=== PATIENT | female | born 1980 | race Caucasian/White ===

== ENCOUNTER 2018-03-19 16:01 | Emergency (ER) | payer OTHER, SELFPAY ==
[2018-03-19 16:11] VITALS: BP 143/90; PULSE 83; RESP 18; TEMP 36.6; O2SAT 98; BMI 31.0
--- NOTE | 2018-03-19 16:33 | ED.BACK ---
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 She states that she was hoping to bathe a client when she felt a pull in her left shoulder afterwards, she was bent over to help put on stockings and felt pain in her left mid and low back area, then unable to get up and straighten up initially due to pain. She states that pain has persisted since then, low-grade when she is sitting and straight, worse with trying to twist or bend at all. She states that she is okay with walking if her trunk is straight. She denies any weakness or paresthesia in her extremities. She denies any bowel or bladder problems. She does have a history of some remote back strain but no recent problems. She denies any other injury or complaints on systems review. Related Data Home Medications Medication Instructions Recorded Confirmed Nasal [place] (sodium chloride) 1 spray INTRANASAL DAILY 03/19/18 03/19/18 diphenhydramine HCl [Benadryl] 25 mg PO QPM 03/19/18 03/19/18 Previous Rx's Medication Instructions Recorded lidocaine 3 patch TOP DAILY #30 each 03/19/18 tramadol 50 mg PO Q6H PRN #10 tab 03/19/18 Allergies Allergy/AdvReac Type Severity Reaction Status Date / Time aspirin Allergy Verified 03/19/18 16:11 ibuprofen Allergy Verified 03/19/18 16:11 NSAIDS (Non-Steroidal Allergy Verified 03/19/18 16:49 Anti-Inflamma Review of Systems <Felicity High PA-C - Last Filed: 03/19/18 22:04> Review of Systems All systems reviewed & are unremarkable except as noted in HPI and below Exam <Felicity High PA-C - Last Filed: 03/19/18 22:04> Narrative Exam Narrative: GENERAL APPEARANCE: Patient sitting comfortably, in no distress. LUNGS: Clear to auscultation bilaterally. HEART: Rate and rhythm regular without murmur, normal S1 and S2, no S3 or S4. MUSCULOSKELETAL: No tenderness over the cervical, thoracic, or lumbar spine. She is tender over the mid to inferior left trapezius, most at the mid scapular line, also mild tenderness over the upper lumbar musculature at the mid scapular line. She has full range of motion of the neck without tenderness. She is able to move her upper extremities with full range of motion. She is able to flex the trunk seated to about 60?. Able to fully extend to 0?. Limited rotation and lateral bend secondary to tenderness. Normal gait. NEUROVASCULAR: Extremities are warm and pink, sensation grossly intact throughout DERMATOLOGIC: No exanthem Initial Vital Signs Initial Vital Signs: Vital Signs Temperature 97.9 F 03/19/18 16:11 Pulse Rate 83 03/19/18 16:11 Respiratory Rate 18 03/19/18 16:11 Blood Pressure 143/90 H 03/19/18 16:11 Pulse Oximetry 98 03/19/18 16:11 <DO Himanshu Cueva Last Filed: 03/23/18 01:18> Initial Vital Signs Initial Vital Signs: Vital Signs Temperature 97.9 F 03/19/18 16:11 Pulse Rate 83 03/19/18 16:11 Respiratory Rate 18 03/19/18 16:11 Blood Pressure 143/90 H 03/19/18 16:11 Pulse Oximetry 98 03/19/18 16:11 Course <Felicity High PA-C - Last Filed: 03/19/18 22:04> Orders Ordered: Discontinued Medications Tramadol HCl (Ultram) 100 mg PO NOW ONE Stop: 03/19/18 16:45 Last Admin: 03/19/18 17:29 Dose: 100 mg Vital Signs - 8 hr 03/19/18 16:11 03/19/18 17:55 Temperature 97.9 F Pulse Rate 83 81 Respiratory Rate 18 21 Blood Pressure 143/90 H Blood Pressure [Right Arm] 130/77 H Pulse Oximetry 98 100 <DO Himanshu Cueva Last Filed: 03/23/18 01:18> Orders Ordered: Discontinued Medications Tramadol HCl (Ultram) 100 mg PO NOW ONE Stop: 03/19/18 16:45 Last Admin: 03/19/18 17:29 Dose: 100 mg Vital Signs - 8 hr 03/19/18 16:11 03/19/18 17:55 Temperature 97.9 F Pulse Rate 83 81 Respiratory Rate 18 21 Blood Pressure 143/90 H Blood Pressure [Right Arm] 130/77 H Pulse Oximetry 98 100 Discharge Plan Departure Patient Disposition: Home Clinical Impression: Strain of left trapezius muscle, Lumbar strain Discharge Date/Time: 03/19/18 18:04 Interventions: ED Discharge Assessment Last Done: 03/19/18 18:03 Instructions: DI for Back Strain or Sprain Activity Restrictions/Additional Instructions: Please call your PCP tomorrow to schedule a follow-up in a few days so that your progress can be assessed, and determine whether other treatment might be needed such as physical therapy. You should return if you have any acutely worsening symptoms in the interim, or new symptoms such as numbness or weakness in your extremities or bowel or bladder problems. Since you cannot take anti-inflammatories or muscle relaxers, please take the tramadol as needed for pain. Do not take it and drive as it may make you sleepy. I have also prescribed topical lidocaine patches for you which may be helpful for pain. You can apply up to 3 at a time for 12 hr daily. These are available [id number] if not covered by L [facility] I Prescriptions: New tramadol 50 mg tablet 50 mg PO Q6H PRN (Reason: back pain) Qty: 10 RF: 0 lidocaine 5 % adhesive patch,medicated 3 patch TOP DAILY Qty: 30 RF: 0 No Action diphenhydramine HCl [Benadryl] 25 mg Capsule 25 mg PO QPM RF: 0 Nasal [place] (sodium chloride) 1 spray Intranasal DAILY RF: 0 Referrals: Dilcia Gordon [Non-Staff] - <Ed Chang DO - Last Filed: 03/23/18 01:18> Cosign ED Attending Zoe Attestation: I was immediately available in the department for consultation. Documentation has been reviewed. I agree with assessment and plan.
[2018-03-19] MEDS: TRAMADOL 50 MG TABLET 100 MG PO (17:29)
[2018-03-19 17:55] VITALS: BP 130/77; PULSE 81; RESP 21; O2SAT 100
== END 2018-03-19 18:04 | disposition home or self-care (01) ==
PROVIDERS: Emergency Provider Internal Medicine
DX: S46.812A Strain of other muscles, fascia and tendons at shoulder and upper arm level, left arm, initial encounter (principal); X50.9XXA Other and unspecified overexertion or strenuous movements or postures, initial encounter; Y99.0 Civilian activity done for income or pay; S39.012A Strain of muscle, fascia and tendon of lower back, initial encounter
CPT/HCPCS: 99282; 99283